=== PATIENT | male | born 2000 | race Caucasian/White ===

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

== ENCOUNTER 2019-03-24 05:30 | Emergency (ER) | payer SELFPAY ==
[~2019-03-24] VITALS: Ht 165.1 cm; Wt 54.4 kg
[2019-03-24 06:11] LABS: BASO # 0.1 10*3/uL (0.0-0.1); BASO % 0.4 % (0.0-1.0); EOS # 0.3 10*3/uL (0.0-0.4); EOS % 1.4 % (1.0-4.0); HEMATOCRIT 42.8 % (42.0-52.0); HEMOGLOBIN 14.5 g/dl (14.0-18.0); LYMPH # 2.1 10*3/uL (1.3-4.4); LYMPH % 11.2 % (27.0-41.0); MEAN CELL VOLUME 85.6 fl (80.0-94.0); MEAN CORPUSCULAR HGB CONC 33.9 g/dl (33.0-37.0); MEAN PLATELET VOLUME 10.8 fl (9.6-12.3); MONO # 1.3 10*3/uL (0.1-1.0); MONO % 7.1 % (3.0-9.0); NEUT # 14.6 10*3/uL (2.3-7.9); NEUT % 79.6 % (47.0-73.0); PLATELET COUNT AUTOMATED 221 10*3/uL (130-400); RED CELL DISTRI WIDTH 13.3 % (0-14.5); WHITE BLOOD COUNT 18.4 10*3/uL (4.8-10.8)
[2019-03-24] MEDS ORDERED: AMOXICILLIN500 M2 PO (06:11)
[2019-03-24 06:36] LABS: ALKALINE PHOSPHATASE 110 U/L (45-117); BUN 10 mg/dl (7-24); CHLORIDE 108 mmol/L (98-107); CREATININE 1.17 mg/dL (0.70-1.30); POTASSIUM 3.8 mmol/L (3.5-5.1); SGOT/AST 7 IU/L (3-35); SGPT/ALT 17 U/L (12-78); SODIUM 141 mmol/L (136-145); TOTAL PROTEIN 7.3 gm/dL (6.4-8.2)
== END 2019-03-24 06:45 | disposition home or self-care (01) ==
LOC: ED 05:30
PROVIDERS: Emergency Medicine Emergency Medical Services
DX: J02.9 Acute pharyngitis, unspecified (principal); R50.9 Fever, unspecified; R13.10 Dysphagia, unspecified; F17.210 Nicotine dependence, cigarettes, uncomplicated; Z88.1 Allergy status to other antibiotic agents; Z88.2 Allergy status to sulfonamides; Z88.8 Allergy status to other drugs, medicaments and biological substances; Z79.899 Other long term (current) drug therapy

== ENCOUNTER 2019-06-22 16:50 | Emergency (ER) | payer SELFPAY ==
[~2019-06-22] VITALS: Ht 165.1 cm; Wt 54.4 kg
[~2019-06-22 16:50] MED LIST changes: +AMOXICILLIN500 M2 PO
[2019-06-22] MEDS ORDERED: AMOXICILLIN500 M3 PO (17:37)
[2019-06-22] MEDS ORDERED: Bactroban Oint22 GM T (17:37)
== END 2019-06-22 17:50 | disposition home or self-care (01) ==
LOC: ED 16:50
DX: T65.891A Toxic effect of other specified substances, accidental (unintentional), initial encounter (principal); T22.412A Corrosion of unspecified degree of left forearm, initial encounter; F17.200 Nicotine dependence, unspecified, uncomplicated; Z88.1 Allergy status to other antibiotic agents; Z88.2 Allergy status to sulfonamides; Z88.8 Allergy status to other drugs, medicaments and biological substances; Z79.899 Other long term (current) drug therapy; Y93.89 Activity, other specified; Y92.89 Other specified places as the place of occurrence of the external cause; Y99.0 Civilian activity done for income or pay